=== PATIENT | male | born 1950 | race Caucasian/White ===

== ENCOUNTER 2016-08-31 13:47 | Inpatient (IN) | payer MEDICARE, OTHER ==
[~2016-08-31] VITALS: Ht 182.9 cm; Wt 67.5 kg
[2016-08-31] VITALS (7 sets, daily range): BP systolic 91–115; BP diastolic 55–71; PULSE 76–145; RESP 15–20; TEMP 98–98.6; O2SAT 92–95
[~2016-08-31 13:47] MED LIST: ALTA2.5C4 PO; CARV6.25 PO; CHLO.12%30 SSP; FURO20 PO; IBUP800T23 PO; KCL20; LANO0.2510 PO; PENI500T PO
[2016-08-31] MEDS ORDERED: SODIUM CHLORIDE 0.9% FLUSH 5 ML FLUSH IVF PRN ×2 (14:45)
[2016-08-31] MEDS ORDERED: DILTIAZEM INJ 125 MG in SODIUM CHLORIDE 0.9% INJ 100 ML IV SCH (14:45)
[2016-08-31] MEDS ORDERED: DILTIAZEM HCL 25 MG/5 ML VIAL IV ONE ×2 (14:45→16:15)
--- NOTE | 2016-08-31 15:21 | RADRPT ---
EXAM DATE/TIME: 08/31/2016 15:05 [facility] COMPARISON: CHEST SINGLE AP, June 25, 2012, 13:21. INDICATIONS : Short of Breath, Dizzy, Weakness. MEDICAL HISTORY : None. SURGICAL HISTORY : Defibrilator. ENCOUNTER: Initial ACUITY: 1 week PAIN SCORE: 0/10 LOCATION: Bilateral chest FINDINGS: Pacemaker device is noted with control pack over the left chest. Minimal parenchymal opacity at the l eft lung base may be scarring or atelectasis. There is mild perihilar interstitial prominence, right worse than left. Heart size mediastinal contours are grossly satisfactory.. CONCLUSION: Mild left base and perihilar parenchymal opacities Albino Vann MD on August 31, 2016 at 15:17 Board Certified Radiologist. This report was verified electronically.
[2016-08-31 15:22] LABS: AUTOMATED NEUTROPHIL # 11.3 TH/MM3 (1.8-7.7); BASOPHIL % 0.3 % (0.0-2.0); HEMATOCRIT 41.4 % (39.0-51.0); HEMO FLAGS DIFF FINAL; LYMPH % 11.4 % (9.0-44.0); LYMPHOCYTE # 1.6 TH/MM3 (1.0-4.8); MEAN CELL VOLUME 88.9 FL (80.0-100.0); MEAN CORPUSCULAR HEMOGLOBIN 29.8 PG (27.0-34.0); MEAN CORPUSCULAR HGB CONC 33.6 % (32.0-36.0); NEUT % 82.3 % (16.0-70.0); PLATELET COUNT 173 TH/MM3 (150-450); RED BLOOD COUNT 4.66 MIL/MM3 (4.50-5.90); RED CELL DISTRIBUTION WIDTH 13.9 % (11.6-17.2); WHITE BLOOD COUNT 13.7 TH/MM3 (4.0-11.0)
[2016-08-31 15:24] LABS: APTT (PATIENT) 30.1 SEC (24.3-30.1); PROTHROMBIN TIME - PATIENT 11.6 SEC (9.8-11.6)
[2016-08-31 15:35] LABS: ALT (GPT) 16 U/L (12-78); ANION GAP 7 MEQ/L (5-15); AST (GOT) 13 U/L (15-37); BICARBONATE 26.1 MEQ/L (21.0-32.0); BLOOD UREA NITROGEN 14 MG/DL (7-18); CHLORIDE 105 MEQ/L (98-107); GLOMERULAR FILTRATION RATE 61 ML/MIN (>89); POTASSIUM 3.8 MEQ/L (3.5-5.1); SODIUM (NA) 138 MEQ/L (136-145)
[2016-08-31 15:38] LABS: ALKALINE PHOSPHATASE 100 U/L (45-117); TOTAL BILIRUBIN ADULT 1.4 MG/DL (0.2-1.0)
--- NOTE | 2016-08-31 16:17 | PD ---
HPI Chief Complaint: General Weakness Time Seen by Provider: 14:43 Travel History International Travel<30 days: No Contact w/Intl Traveler<30days: No History of Present Illness HPI This is a 66-year-old male who has a history of congestive heart failure with an ejection fraction of 20-25% who presents to the emergency department with shortness of breath has been worsening over the past week, constant, worse with exertion, described as difficulty catching his breath associated with palpitations. He denies any chest pain. This is happened to him in the past. 3 years ago he was admitted to the hospital and had an AICD placed under similar circumstances. He says he follows with Dr. Turcios. [facility] Past Medical History Atrial Fibrillation: Yes Cardiovascular Problems: Yes (PACER/DEFIB) Congestive Heart Failure: Yes Social History Alcohol Use: No Tobacco Use: No Substance Use: No Allergies-Medications (Allergen,Severity, Reaction): Coded Allergies: No Known Allergies (Verified , 08/31/16) Reported Meds & Prescriptions Reported Meds & Active Scripts Active Ibuprofen 800 Mg Tab 800 Mg PO Q6 Pen Vk (Penicillin V Potassium) 500 Mg Tab 500 Mg PO TID Peridex Oral Rinse (Chlorhexidine Gluconate) 0.12 % Zena 15 Ml SSP BID 14 Days Reported Lasix 20 Mg Tab (Furosemide) 20 Mg Tab 20 Mg PO DAILY Coreg (Carvedilol) 6.25 Mg Tab 6.25 Mg PO BID Altace (Ramipril) 2.5 Mg Cap 2.5 Mg PO DAILY Lanoxin (Digoxin) 0.25 Mg Tab 0.25 Mg PO DAILY Kcl 20 Meq Tab (Potassium Chloride) 20 Meq Tabcr 20 Meq .XX Review of Systems Except as stated in HPI: all other systems reviewed are Neg Physical Exam Narrative GENERAL:Well appearing, no acute distress SKIN: Warm and dry. HEAD: Atraumatic. Normocephalic. EYES: Pupils equal and round. No injection or drainage. ENT: Moist mucous membranes NECK: Trachea midline. CARDIOVASCULAR: Tachycardic. Irregularly irregular. No murmur appreciated. RESPIRATORY: Clear to auscultation. Breath sounds equal bilaterally. GASTROINTESTINAL: Abdomen soft, non-tender, nondistended. MUSCULOSKELETAL: No obvious deformities. NEUROLOGICAL: Awake and alert. No obvious cranial nerve deficits. Moving all extremities. PSYCHIATRIC: Appropriate mood and affect; insight and judgment normal. Data Data Last Documented VS Vital Signs Date Time Temp Pulse Resp B/P Pulse Ox O2 Delivery O2 Flow Rate FiO2 08/31/16 17:00 115 18 115/71 95 08/31/16 14:53 Room Air 08/31/16 14:53 98.2 Orders Electrocardiogram (08/31/16 14:01) B-Type Natriuretic Peptide (08/31/16 14:43) Complete Blood Count With Diff (08/31/16 14:43) Comprehensive Metabolic Panel (08/31/16 14:43) Magnesium (Mg) (08/31/16 14:43) Prothrombin Time / Inr (Pt) (08/31/16 14:43) Act Partial Throm Time (Ptt) (08/31/16 14:43) Troponin I (08/31/16 14:43) Chest, Single Ap (08/31/16 14:43) Ecg Monitoring (08/31/16 14:43) Bilateral Bp Monitoring (08/31/16 14:43) Iv Access Insert/Monitor (08/31/16 14:43) Oximetry (08/31/16 14:43) Oxygen Administration (08/31/16 14:43) Sodium Chloride 0.9% Flush (Ns Flush) (08/31/16 14:45) Blood Pressure (08/31/16 14:43) Vital Signs (08/31/16 14:43) Diltiazem Inj (Cardizem Inj) (08/31/16 14:45) Sodium Chloride 0.9% Flush (Ns Flush) (08/31/16 14:45) Diltiazem Inj (Cardizem Inj) (08/31/16 14:45) Diltiazem Inj (Cardizem Inj) (08/31/16 16:15) Admit Order (Ed Use Only) (08/31/16 17:34) Labs Laboratory Tests Test 08/31/16 15:00 White Blood Count 13.7 TH/MM3 Red Blood Count 4.66 MIL/MM3 Hemoglobin 13.9 GM/DL Hematocrit 41.4 % Mean Corpuscular Volume 88.9 FL Mean Corpuscular Hemoglobin 29.8 PG Mean Corpuscular Hemoglobin 33.6 % Concent Red Cell Distribution Width 13.9 % Platelet Count 173 TH/MM3 Mean Platelet Volume 8.6 FL Neutrophils (%) (Auto) 82.3 % Lymphocytes (%) (Auto) 11.4 % Monocytes (%) (Auto) 6.0 % Eosinophils (%) (Auto) 0.0 % Basophils (%) (Auto) 0.3 % Neutrophils # (Auto) 11.3 TH/MM3 Lymphocytes # (Auto) 1.6 TH/MM3 Monocytes # (Auto) 0.8 TH/MM3 Eosinophils # (Auto) 0.0 TH/MM3 Basophils # (Auto) 0.0 TH/MM3 CBC Comment DIFF FINAL Differential Comment Prothrombin Time 11.6 SEC Prothromb Time International 1.0 RATIO Ratio Activated Partial 30.1 SEC Thromboplast Time Sodium Level 138 MEQ/L Potassium Level 3.8 MEQ/L Chloride Level 105 MEQ/L Carbon Dioxide Level 26.1 MEQ/L Anion Gap 7 MEQ/L Blood Urea Nitrogen 14 MG/DL Creatinine 1.19 MG/DL Estimat Glomerular Filtration 61 ML/MIN Rate Random Glucose 106 MG/DL Calcium Level 9.2 MG/DL Magnesium Level 2.0 MG/DL Total Bilirubin 1.4 MG/DL Aspartate Amino Transf 13 U/L (AST/SGOT) Alanine Aminotransferase 16 U/L (ALT/SGPT) Alkaline Phosphatase 100 U/L Troponin I LESS THAN 0.02 NG/ML B-Type Natriuretic Peptide 316 PG/ML Total Protein 7.8 GM/DL Albumin 3.6 GM/DL [facility] Medical Decision Making Medical Screen Exam Complete: Yes Emergency Medical Condition: Yes Medical Record Reviewed: Yes (patient was admitted in 2011 and diagnosed with congestive heart failure and an AICD was placed.) Interpretation(s) Mild leukocytosis Left shift Electrolytes within normal limits BNP is 316 Troponin is normal Chest x-ray: Left base perihilar and parenchymal opacities Differential Diagnosis Atrial flutter, atrial fibrillation, congestive heart failure, myocardial infarction, pneumonia Narrative Course This is a 66-year-old male who presents to the emergency department with atrial flutter with rapid ventricular response. He has a history congestive heart failure. He is placed on a monitor and an IV was established. He was given 2 boluses of diltiazem and started on a diltiazem infusion. His blood pressure remained stable. He does have evidence of a possible pneumonia on chest x-ray. He was given a dose of ceftriaxone and azithromycin was admitted to the hospital for further management. Critical Care Narrative Aggregate critical care time was 35 minutes. Time to perform other separately billable procedures was not included in the critical care time. My time did not include minutes spent treating any other patients simultaneously or on activities that did not directly contribute to the patient's treatment. The services I provided to this patient were to treat and/or prevent clinically significant deterioration that could result in: Disability, I provided critical care services requiring my management, as noted below: Chart data review, documentation time, medication orders and management, vital sign assessments/reviewing monitor data, ordering and reviewing lab tests, ordering and interpreting/reviewing x-rays and diagnostic studies, care of the patient and discussion of the patient with the admitting physicians. Physician Communication Physician Communication Discussed with Dr. Haile Diagnosis Primary Impression: Atrial flutter with rapid ventricular response Additional Impression: Pneumonia Qualified Code: J18.9 - Pneumonia of left lung due to infectious organism, unspecified part of lung Admitting Information Admitting Physician Requests: Admit Montserrat Sparks MD Aug 31, 2016 16:17
[2016-08-31] MEDS ORDERED: AZITHROMYCIN INJ 500 MG in SODIUM CHLOR 0.9% 250 ML INJ 250 ML IV ONE (17:45)
[2016-08-31] MEDS ORDERED: cefTRIAXone INJ 1,000 MG in SODIUM CHLORIDE 0.9% INJ 100 ML IV ONE (17:45)
[2016-08-31] MEDS ORDERED: SENNOSIDES 8.6 MG TAB PO PRN (18:15)
[2016-08-31] MEDS ORDERED: ONDANSETRON HCL 4 MG/2 ML VIAL IVP PRN (18:15)
[2016-08-31] MEDS ORDERED: SODIUM CHLORIDE 0.9% FLUSH 5 ML FLUSH FLUSH PRN (18:15)
[2016-08-31] MEDS ORDERED: NALOXONE HCL 0.4 MG/ML AMP IV PRN (18:15)
[2016-08-31] MEDS ORDERED: ACETAMINOPHEN 325 MG TAB PO PRN ×2 (18:15)
--- NOTE | 2016-08-31 18:21 | HHI.HP ---
[facility] Service [facility] Primary Care Physician No Primary Care Physician Admission Diagnosis atrial flutter with rvr Diagnoses: Chief Complaint: Weakness, fatigue, shortness of breath Travel History International Travel<30 Days: No Contact w/Intl Traveler <30 Da: No History of Present Illness The patient is a 66-year-old male with a past medical history of CHF and atrial fibrillation who is presenting to the hospital with fatigue, lightheadedness and shortness of breath. The patient says that ever since he had AICD placed in 2011 he has chronically had fatigue and lightheadedness from time to time. He also notes shortness of breath from time to time. Over the past week he has noticed his symptoms have been progressing. He is short of breath randomly, not just with exertion. He says when he starts taking deep breaths slowly he starts to feel a little bit better. He has denied any chest pain or palpitations. He says this morning his gearcase assembler stopped by the house and thought he looked badly so she took him to the hospital for further evaluation. The patient does feel weak in general but he does ambulate without a cane or walker. He is able to go up and down stairs but it is a challenge for him. He denies any lower extremity edema. He has not noticed any weight gain. He does not wake up in the middle of the night short of breath. He is able to lay flat on his back without feeling short of breath. He does endorse a poor memory. He says he has been following up with cardiology. Review of Systems Constitutional: COMPLAINS OF: Fatigue, Dizziness, DENIES: Weight gain Respiratory: COMPLAINS OF: Shortness of breath Cardiovascular: COMPLAINS OF: Dyspnea on Exertion, DENIES: Chest pain, Palpitations, PND, Lower Extremity Edema, Orthopnea Gastrointestinal: DENIES: Constipation Neurologic: COMPLAINS OF: Abnormal gait Past Family Social History Past Medical History Systolic CHF Atrial fibrillation Past Surgical History Status post AICD placement Allergies: Coded Allergies: No Known Allergies (Verified , 08/31/16) Active Ordered Medications Current Medications Medications (Trade) Dose Ordered Sig/Jojo Route Start Time Stop Time Status Last Admin IV Flush 2 ml 2 ml UNSCH PRN IVF 08/31/16 14:45 (Cardizem Inj/NS Inj) 125 ml @ 0 mls/hr TITRATE IV 08/31/16 14:45 08/31/16 15:26 IV Flush 2 ml 2 ml UNSCH PRN IVF 08/31/16 14:45 Ceftriaxone Sodium 1000 mg/ Sodium Chloride 100 ml @ 200 mls/hr ONCE ONCE IV 08/31/16 17:45 08/31/16 18:14 (Zithromax Inj/ NS 250 ml Inj) 250 ml @ 250 mls/hr ONCE ONCE IV 08/31/16 17:45 08/31/16 18:44 (Lanoxin) 0.25 mg DAILY PO 09/01/16 09:00 UNV (Lasix) 20 mg DAILY PO 09/01/16 09:00 UNV Non-Formulary Medication 2.5 mg DAILY PO 09/01/16 09:00 UNV (Coreg) 12.5 mg Q12HR PO 08/31/16 21:00 UNV Family History The patient does not know any significant family history. Social History The patient quit smoking in 2014. He quit drinking 2 years ago. He does not use illicit drugs. Physical Exam Vital Signs Vital Signs Date Time Temp Pulse Resp B/P Pulse Ox O2 Delivery O2 Flow Rate FiO2 08/31/16 17:00 115 18 115/71 95 08/31/16 15:20 95 08/31/16 14:53 94 Room Air 08/31/16 14:53 98.2 142 18 106/70 95 Room Air 08/31/16 14:53 143 106/70 08/31/16 14:53 95 Room Air 08/31/16 13:52 96/64 08/31/16 13:49 98.0 145 15 94/59 92 Physical Exam GENERAL: This is a well-nourished, well-developed patient, in no apparent distress. SKIN: No rashes, ecchymoses or lesions. Cool and dry. HEAD: Atraumatic. Normocephalic. No temporal or scalp tenderness. EYES: Pupils equal round and reactive. Extraocular motions intact. No scleral icterus. No injection or drainage. ENT: Nose without bleeding, purulent drainage or septal hematoma. Throat without erythema, tonsillar hypertrophy or exudate. Uvula midline. Airway patent. NECK: Trachea midline. No JVD or lymphadenopathy. Supple, nontender, no meningeal signs. CARDIOVASCULAR: Irregularly irregular rhythm. RESPIRATORY: Clear to auscultation. Breath sounds equal bilaterally. No wheezes , rales, or rhonchi. GASTROINTESTINAL: Abdomen soft, non-tender, nondistended. No hepato-splenomegaly , or palpable masses. No guarding. MUSCULOSKELETAL: Extremities without clubbing, cyanosis, or edema. No joint tenderness, effusion, or edema noted. NEUROLOGICAL: Awake and alert. Cranial nerves II through XII intact. Motor and sensory grossly within normal limits. Five out of 5 muscle strength in all muscle groups. Normal speech. PSYCH: Slightly flattened affect. Laboratory Laboratory Tests Test 08/31/16 15:00 White Blood Count 13.7 Red Blood Count 4.66 Hemoglobin 13.9 Hematocrit 41.4 Mean Corpuscular Volume 88.9 Mean Corpuscular Hemoglobin 29.8 Mean Corpuscular Hemoglobin 33.6 Concent Red Cell Distribution Width 13.9 Platelet Count 173 Mean Platelet Volume 8.6 Neutrophils (%) (Auto) 82.3 Lymphocytes (%) (Auto) 11.4 Monocytes (%) (Auto) 6.0 Eosinophils (%) (Auto) 0.0 Basophils (%) (Auto) 0.3 Neutrophils # (Auto) 11.3 Lymphocytes # (Auto) 1.6 Monocytes # (Auto) 0.8 Eosinophils # (Auto) 0.0 Basophils # (Auto) 0.0 CBC Comment DIFF FINAL Differential Comment Prothrombin Time 11.6 Prothromb Time International 1.0 Ratio Activated Partial 30.1 Thromboplast Time Sodium Level 138 Potassium Level 3.8 Chloride Level 105 Carbon Dioxide Level 26.1 Anion Gap 7 Blood Urea Nitrogen 14 Creatinine 1.19 Estimat Glomerular Filtration 61 Rate Random Glucose 106 Calcium Level 9.2 Magnesium Level 2.0 Total Bilirubin 1.4 Aspartate Amino Transf 13 (AST/SGOT) Alanine Aminotransferase 16 (ALT/SGPT) Alkaline Phosphatase 100 Troponin I LESS THAN 0.02 B-Type Natriuretic Peptide 316 Total Protein 7.8 Albumin 3.6 Result Diagram: 08/31/16 1500 08/31/16 1500 Imaging Last Impressions Chest X-Ray 08/31/16 1443 Signed Impressions: Service Date/Time: Wednesday, August 31, 2016 15:05 - CONCLUSION: Mild left base and perihilar parenchymal opacities Albino Vann MD Assessment and Plan Assessment and Plan Atrial flutter with RVR The patient has a history of atrial fibrillation and is on aspirin, digoxin and Coreg. The patient has been feeling short of breath, lethargic and dizzy for the past week. He received IV diltiazem and his rate has been controlled in the emergency department. - Increase Coreg. - Continue digoxin. - Monitor on telemetry. - Consult cardiology. - Check a TSH. Chronic systolic CHF The patient is status post AICD. He presents with dyspnea and lethargy. - Continue cardiac regimen. - Cardiology consult pending. - Consider pacemaker interrogation. CAP CXR with questionable infiltrate. He also has leukocytosis. Afebrile. Pt has dyspnea and lethargy. - start doxycycline. - check CXR PA/lateral in AM. - Urinary Legionella and strep topical antigens pending. - Sputum culture and Gram stain. - Oxygen and nebs as needed. Weakness The patient endorses weakness and lightheadedness since his AICD was placed in 2011. - Physical therapy. - Treatment as above. PPx: Lovenox. Code Status Full. Discussed Condition With Pt, Dr. Sparks. Physician Certification 2 Midnight Certification Type: Admission for Inpatient Services Order for Inpatient Services The services are ordered in accordance with Medicare regulations or non- Medicare payer requirements, as applicable. In the case of services not specified as inpatient-only, they are appropriately provided as inpatient services in accordance with the 2-midnight benchmark. Estimated LOS (days): 2 days is the estimated time the patient will need to remain in the hospital, assuming treatment plan goals are met and no additional complications. Post-Hospital Plan: Home Gato Haile DO Aug 31, 2016 18:21
[2016-08-31] MEDS ORDERED: ENOXAPARIN SODIUM 40 MG/0.4 ML SYRINGE SQ SCH (20:00)
[2016-08-31] MEDS ORDERED: DOXYCYCLINE INJ 100 MG in SODIUM CHLORIDE 0.9% INJ 100 ML IV SCH (20:00)
[2016-08-31] MEDS ORDERED: CARVEDILOL 12.5 MG TAB PO SCH (21:00)
--- NOTE | 2016-08-31 22:06 | EKG ---
Date Performed: 08/31/2016 Time Performed: 14:13:44 PTAGE: 66 years EKG: ATRIAL FLUTTER/TACHYCARDIA WITH RAPID VENTRICULAR RESPONSE NONSPECIFIC ST & T-WAVE ABNORMAL ITY ABNORMAL RHYTHM ECG PREVIOUS TRACING : 06/25/2012 04.27 Compared to the previous tracing, now in atrial flutter wit h rvr DOCTOR: Carlos A Jara Interpretating Date/Time 08/31/2016 22:04:36
[2016-08-31] MEDS: DOCUSATE SODIUM 100 MG CAP PO SCH (23:30)
[2016-08-31] MEDS: SODIUM CHLORIDE 0.9% FLUSH 5 ML FLUSH FLUSH SCH (23:30)
[2016-09-01] VITALS (24 sets, daily range): BP systolic 79–130; BP diastolic 63–84; PULSE 76–137; RESP 16–20; TEMP 97.4–98.7; O2SAT 90–95
[2016-09-01 03:31] LABS: AUTOMATED NEUTROPHIL # 9.4 TH/MM3 (1.8-7.7); BASOPHIL % 0.1 % (0.0-2.0); EOSINOPHIL % 0.2 % (0.0-4.0); HEMATOCRIT 35.9 % (39.0-51.0); HEMO FLAGS DIFF FINAL; LYMPH % 9.8 % (9.0-44.0); LYMPHOCYTE # 1.1 TH/MM3 (1.0-4.8); MEAN CELL VOLUME 88.2 FL (80.0-100.0); MEAN CORPUSCULAR HEMOGLOBIN 29.8 PG (27.0-34.0); MEAN CORPUSCULAR HGB CONC 33.8 % (32.0-36.0); MONO % 4.7 % (0.0-8.0); NEUT % 85.2 % (16.0-70.0); PLATELET COUNT 148 TH/MM3 (150-450); RED BLOOD COUNT 4.06 MIL/MM3 (4.50-5.90); RED CELL DISTRIBUTION WIDTH 13.7 % (11.6-17.2); WHITE BLOOD COUNT 11.1 TH/MM3 (4.0-11.0)
[2016-09-01 03:50] LABS: BICARBONATE 24.4 MEQ/L (21.0-32.0); POTASSIUM 3.7 MEQ/L (3.5-5.1)
[2016-09-01] MEDS ORDERED: METOPROLOL TARTRATE 5 MG/5 ML VIAL IV PUSH ONE (04:30)
[2016-09-01] MEDS ORDERED: SODIUM CHLORID 0.9% 500 ML INJ 500 ML IV ONE (05:45)
[2016-09-01] MEDS ORDERED: DIGOXIN 0.5 MG/2 ML VIAL IV PUSH ONE (08:30)
[2016-09-01] MEDS ORDERED: FUROSEMIDE 20 MG TAB PO SCH (09:00)
[2016-09-01] MEDS ORDERED: RAMIPRIL PO SCH (09:00)
[2016-09-01] MEDS ORDERED: RAMIPRIL 2.5 MG CAP PO SCH (09:00)
[2016-09-01] MEDS: SODIUM CHLORIDE 0.9% FLUSH 5 ML FLUSH FLUSH SCH ×2 (09:04→22:02)
[2016-09-01] MEDS: DOCUSATE SODIUM 100 MG CAP PO SCH ×2 (09:04→22:02)
[2016-09-01] MEDS: ENOXAPARIN SODIUM 60 MG/0.6 ML SYRINGE SQ SCH ×2 (09:09→22:03)
[2016-09-01] MEDS: DIGOXIN 0.25 MG TAB PO SCH (09:10)
--- NOTE | 2016-09-01 09:36 | MB ---
cc: EDILBERTO BETANCUR M.D., LISA, M.D. GOLDSMITH, ALAN S. M.D. DATE OF CONSULTATION: 09/01/2016 HISTORY OF PRESENT ILLNESS The patient is a 66-year-old white gentleman who I am seeing for atrial flutter. The patient's outside records and hospital records were reviewed. 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 He had an ejection fraction of 10-20% at that time. Last echocardiogram done 03/10 showed normal LV function with mild to moderate aortic, mitral and tricuspid regurgitation. SPECT nuclear in 2011 showed no ischemia. The patient does have chronic fatigue. He does note starting 5-6 days ago that things had changed where he was getting intermittently lightheaded, had mild increase in dyspnea on exertion and just did not feel well. There were no other cardiac symptomatology noted. He had no fevers, chills or stroke symptoms. PAST MEDICAL HISTORY 1. Cardiac as above. 2. Hernia repair. ALLERGIES NONE. FAMILY HISTORY Remarkable for father with an AK. SOCIAL HISTORY He is single and quit smoking in 2014 and does not drink. REVIEW OF SYSTEMS Only remarkable for his fatigue and just generalized body achiness. PHYSICAL EXAMINATION EKG on admission showed atrial flutter with a rapid response. It was somewhat slowed but they have cut back the Cardizem and he is in a response of 120-130 now. He is afebrile and vital signs stable otherwise. HEENT: There are no xanthelasma and oral pharyngeal mucosa normal. GENERAL: He is alert and oriented x3. CHEST: Chest clear without deformities. JVD normal. CARDIOVASCULAR: S1, S2. No murmurs or gallops. ABDOMEN: Benign. EXTREMITIES: Extremities show no cyanosis, clubbing or edema. Pulses 1 to 2+ throughout without bruits. IMAGING Chest x-ray reveals mild left base and perihilar opacities. LABORATORY DATA CBC remarkable for minimal anemia and a mildly elevated white count. Potassium 3.7, magnesium normal, creatinine 0.85, troponins negative. BNP minimally elevated at 316. TSH level normal. PT/PTT normal. PROBLEMS 1. Atrial flutter with rapid response. 2. Prior cardiomyopathy. 3. Possible pulmonary infiltrate. RECOMMENDATIONS 1. The patient may have been in his atrial flutter with rapid response for close to a week. We will need to concentrate on rate control and anticoagulation. He was not on digoxin at home so I will continue the oral dose started and give him a bolus of 0.5 mg IV. 2. Low-dose beta blockers and intravenous Cardizem for rate control. 3. Full dose Lovenox. 4. Echocardiogram. 5. Dr. Betancur will return on Saturday and provide further definitive evaluation and treatment. All questions were answered. I would hold his diuresis at this point in time and his VASYL inhibitors given his borderline blood pressure. Medications prior to admission are erroneous in the history and physical. He was on carvedilol 12.5 mg b.i.d., Baby aspirin per day and Lisinopril 5 mg daily only. MD EDISON Perales/SHEFALI /8:26 AM /9:10 AM
[2016-09-01] MEDS: CARVEDILOL 6.25 MG TAB PO SCH ×2 (10:24→22:02)
--- NOTE | 2016-09-01 12:23 | RADRPT ---
EXAM DATE/TIME: 09/01/2016 11:57 [facility] COMPARISON: CHEST SINGLE AP, August 31, 2016, 15:05. INDICATIONS : Shortness of breath. Pneumonia. MEDICAL HISTORY : None. SURGICAL HISTORY : Defibrillator. ENCOUNTER: Subsequent ACUITY: 1 week PAIN SCORE: 0/10 LOCATION: Bilateral chest FINDINGS: Right lung is clear. Very minimal parenchymal changes are present in the left. Pacer is implanted o n the left. Heart and pulmonary vascularity are normal. Portion of bony skeleton visualized is unre markable. CONCLUSION: Very minimal parenchymal changes on the left, new from the comparison study. This is nonspecific. C onsiderations would include both an inflammatory process as well as atelectasis. Dane Flores MD FACR on September 01, 2016 at 12:13 Board Certified Radiologist. This report was verified electronically.
--- NOTE | 2016-09-01 13:12 | HHI.PR ---
Subjective Remarks The patient was resting comfortably in bed. He said that he felt better. He was looking forward to going home soon. He said he had a watery bowel movement earlier this morning. He said he worked with physical therapy. He had no acute complaints. Discussed with nursing. Objective Vitals Vital Signs Date Time Temp Pulse Resp B/P Pulse Ox O2 Delivery O2 Flow Rate FiO2 09/01/16 13:00 98 09/01/16 12:00 97.5 93 19 97/63 95 09/01/16 12:00 100 09/01/16 11:00 100 09/01/16 10:00 132 09/01/16 09:00 133 09/01/16 08:00 129 09/01/16 08:00 98.5 130 19 105/74 95 09/01/16 07:00 130 09/01/16 06:07 98.6 130 20 107/78 95 09/01/16 06:00 129 09/01/16 01:35 98.7 108 20 101/66 94 09/01/16 01:32 98.6 76 20 79/63 93 09/01/16 01:00 87 09/01/16 00:00 78 08/31/16 23:34 89 08/31/16 23:33 98.6 76 20 91/67 93 08/31/16 23:00 100 18 105/55 94 08/31/16 17:00 115 18 115/71 95 08/31/16 15:20 95 08/31/16 14:53 94 Room Air 08/31/16 14:53 98.2 142 18 106/70 95 Room Air 08/31/16 14:53 143 106/70 08/31/16 14:53 95 Room Air 08/31/16 13:52 96/64 08/31/16 13:49 98.0 145 15 94/59 92 I/O 08/31/16 08/31/16 08/31/16 09/01/16 09/01/16 09/01/16 07:00 15:00 23:00 07:00 15:00 23:00 Intake Total 540 ml Output Total 100 ml Balance 440 ml Intake Oral 240 ml IV Total 300 ml Output Urine Total 100 ml Result Diagram: 09/01/1631609/01/16316 Imaging Last Impressions Chest X-Ray 08/31/16 1443 Signed Impressions: Service Date/Time: Wednesday, August 31, 2016 15:05 - CONCLUSION: Mild left base and perihilar parenchymal opacities Albino Vann MD Objective Remarks GENERAL: This is a well-nourished, well-developed patient, in no apparent distress. SKIN: No rashes, ecchymoses or lesions. Cool and dry. HEAD: Atraumatic. Normocephalic. No temporal or scalp tenderness. EYES: Pupils equal round and reactive. Extraocular motions intact. No scleral icterus. No injection or drainage. ENT: Nose without bleeding, purulent drainage or septal hematoma. Throat without erythema, tonsillar hypertrophy or exudate. Uvula midline. Airway patent. NECK: Trachea midline. No JVD or lymphadenopathy. Supple, nontender, no meningeal signs. CARDIOVASCULAR: Tachycardic, irregularly irregular rhythm. RESPIRATORY: Clear to auscultation. Breath sounds equal bilaterally. No wheezes , rales, or rhonchi. GASTROINTESTINAL: Abdomen soft, non-tender, nondistended. No hepato-splenomegaly , or palpable masses. No guarding. MUSCULOSKELETAL: Extremities without clubbing, cyanosis, or edema. No joint tenderness, effusion, or edema noted. NEUROLOGICAL: Awake and alert. Cranial nerves II through XII intact. Motor and sensory grossly within normal limits. Five out of 5 muscle strength in all muscle groups. Normal speech. PSYCH: Mood and affect appropriate. Medications and IVs Current Medications Medications (Trade) Dose Ordered Sig/Jojo Route Start Time Stop Time Status Last Admin (Cardizem Inj/NS Inj) 125 ml @ 0 mls/hr TITRATE IV 08/31/16 14:45 08/31/16 15:26 (Lanoxin) 0.25 mg DAILY PO 09/01/16 09:00 09/01/16 09:10 (NS Flush) 2 ml UNSCH PRN FLUSH 08/31/16 18:15 (NS Flush) 2 ml BID FLUSH 08/31/16 21:00 09/01/16 09:04 (Tylenol) 650 mg Q4H PRN PO 08/31/16 18:15 (Zofran Inj) 4 mg Q6H PRN IVP 08/31/16 18:15 (Colace) 100 mg Q12H PO 08/31/16 20:00 09/01/16 09:04 (Senokot) 17.2 mg Q12H PRN PO 08/31/16 18:15 (Tylenol) 650 mg Q6H PRN PO 08/31/16 18:15 (Roxicodone) 10 mg Q4H PRN PO 08/31/16 18:15 (Roxicodone) 5 mg Q4H PRN PO 08/31/16 18:15 Naloxone HCl 0.4 mg 0.4 mg UNSCH PRN IV 08/31/16 18:15 (Vibramycin Inj/ NS Inj) 100 ml @ 100 mls/hr Q12H IV 08/31/16 20:00 09/01/16 09:03 (Coreg) 6.25 mg Q12HR PO 09/01/16 09:00 09/01/16 10:24 (Lovenox Inj) 60 mg Q12H SQ 09/01/16 09:00 09/01/16 09:09 (K-Lyte Cl Eff) 25 meq ONCE ONCE PO 09/01/16 13:00 09/01/16 13:01 UNV A/P Assessment and Plan Atrial flutter with RVR The patient has a history of atrial fibrillation and is on aspirin, digoxin and Coreg. The patient has been feeling short of breath, lethargic and dizzy for the past week. He received IV diltiazem and his rate has been controlled in the emergency department. Cardiology consultation appreciated. - Continue Coreg. - Continue digoxin. He received a dose of IV digoxin per cardiology. - Monitor on telemetry. - Check an echocardiogram. - Wean off Cardizem drip. - therapeutic Lovenox per cardiology. Will likely transition to Coumadin if no ablation planned. Chronic systolic CHF The patient is status post AICD. He presents with dyspnea and lethargy. - Continue cardiac regimen. Holding Lasix and lisinopril in the setting of relative hypotension. - Follow up with cardiology. - Consider pacemaker interrogation. CAP CXR with questionable infiltrate. He also has leukocytosis. Afebrile. Pt has dyspnea and lethargy. No cough or sputum production. - d/c doxycycline and monitor. - Urinary Legionella and streptococcal antigens pending. - Sputum culture and Gram stain. - Oxygen and nebs as needed. Weakness The patient endorses weakness and lightheadedness since his AICD was placed in 2011. - Physical therapy. - Treatment as above. PPx: Lovenox. Discharge Planning Awaiting clinical improvement. Gato Haile DO Sep 01, 2016 13:12
[2016-09-01] MEDS ORDERED: POTASSIUM CHLORIDE 25 MEQ EFFERVESCENT TAB PO ONE (14:00)
--- NOTE | 2016-09-01 14:46 | EKG ---
Date Performed: 08/31/2016 Time Performed: 22:45:41 PTAGE: 66 years EKG: ATRIAL FIBRILLATION WITH Controlled Ventricular Response NONSPECIFIC T-WAVE ABNORMALITY ABN ORMAL RHYTHM ECG PREVIOUS TRACING : 08/31/2016 14.13 Compared to the previous tracing, rate has decreased DOCTOR: Carlos A Jara Interpretating Date/Time 09/01/2016 14:44:21
[2016-09-01] MEDS ORDERED: DILTIAZEM HCL 25 MG/5 ML VIAL IV ONE (18:45)
[2016-09-01] MEDS ORDERED: DILTIAZEM IV ONE (19:00)
[2016-09-01] MEDS ORDERED: SODIUM CHLORIDE 0.9% IV ONE (19:00)
[2016-09-02] VITALS (30 sets, daily range): BP systolic 90–143; BP diastolic 64–85; PULSE 77–141; RESP 16; TEMP 97.6–98.7; O2SAT 91–95
[2016-09-02] MEDS ORDERED: DILTIAZEM HCL 25 MG/5 ML VIAL IV SCH (02:45)
[2016-09-02 05:31] LABS: HEMATOCRIT 37.2 % (39.0-51.0); MEAN CORPUSCULAR HEMOGLOBIN 30.1 PG (27.0-34.0); MEAN CORPUSCULAR HGB CONC 33.8 % (32.0-36.0); PLATELET COUNT 184 TH/MM3 (150-450); RED BLOOD COUNT 4.18 MIL/MM3 (4.50-5.90); RED CELL DISTRIBUTION WIDTH 14.1 % (11.6-17.2); REVIEW FLAG FINAL; WHITE BLOOD COUNT 8.5 TH/MM3 (4.0-11.0)
[2016-09-02 05:51] LABS: BICARBONATE 22.2 MEQ/L (21.0-32.0); MAGNESIUM 1.9 MG/DL (1.5-2.5); POTASSIUM 3.7 MEQ/L (3.5-5.1)
[2016-09-02] MEDS ORDERED: DILTIAZEM HCL 30 MG TAB PO SCH (09:00)
--- NOTE | 2016-09-02 09:19 | PD.CARD.PN ---
Subjective Subjective Remarks The patient is off of intravenous diltiazem and on oral medication. Telemetry shows controlled atrial flutter with occasional ventricular demand pacemaker. He denies chest pain, shortness of breath, palpitations, GI symptoms or bleeding. Objective Medications Reviewed Vital Signs / I&O Vital Signs Date Time Temp Pulse Resp B/P Pulse Ox O2 Delivery O2 Flow Rate FiO2 09/02/16 08:00 77 09/02/16 07:00 120 09/02/16 05:01 98.1 103 16 90/64 91 09/02/16 05:00 106 09/02/16 04:00 119 09/02/16 03:00 111 09/02/16 02:00 117 09/02/16 01:00 141 09/02/16 00:05 98.1 112 16 109/77 91 09/02/16 00:00 107 09/01/16 23:00 111 09/01/16 22:00 97.4 117 16 130/84 90 09/01/16 22:00 119 09/01/16 21:00 111 09/01/16 20:00 137 09/01/16 19:00 103 09/01/16 18:00 117 09/01/16 17:00 111 09/01/16 16:00 97.7 104 17 101/70 94 09/01/16 16:00 102 09/01/16 15:00 100 09/01/16 14:00 100 09/01/16 13:00 98 09/01/16 12:00 97.5 93 19 97/63 95 09/01/16 12:00 100 09/01/16 11:00 100 09/01/16 10:00 132 I/O 09/01/16 09/01/16 09/01/16 09/02/16 09/02/16 09/02/16 07:00 15:00 23:00 07:00 15:00 23:00 Intake Total 540 ml 250 ml 240 ml Output Total 100 ml 625 ml 150 ml Balance 440 ml -375 ml 90 ml Intake Oral 240 ml 250 ml 240 ml IV Total 300 ml 0 ml Output Urine Total 100 ml 625 ml 150 ml # Voids 1 # Bowel Movements 1 0 Physical Exam GENERAL: Well-nourished, well-developed patient in no apparent distress. SKIN: Warm and dry. NECK: JVD normal - less than or equal to 5 cm H20. CARDIOVASCULAR: Irregular rate and rhythm without murmurs, gallops, or rubs. RESPIRATORY: Normal breath sounds - equal bilaterally. No accessory muscle use. No wheezes, rales or rubs. PERIPHERY: No cyanosis, or edema. Laboratory Laboratory Tests Test 09/02/16 04:40 White Blood Count 8.5 TH/MM3 Red Blood Count 4.18 MIL/MM3 Hemoglobin 12.6 GM/DL Hematocrit 37.2 % Mean Corpuscular Volume 89.0 FL Mean Corpuscular Hemoglobin 30.1 PG Mean Corpuscular Hemoglobin 33.8 % Concent Red Cell Distribution Width 14.1 % Platelet Count 184 TH/MM3 Mean Platelet Volume 8.7 FL Sodium Level 144 MEQ/L Potassium Level 3.7 MEQ/L Chloride Level 110 MEQ/L Carbon Dioxide Level 22.2 MEQ/L Anion Gap 12 MEQ/L Blood Urea Nitrogen 17 MG/DL Creatinine 0.74 MG/DL Estimat Glomerular Filtration 105 ML/MIN Rate Random Glucose 97 MG/DL Calcium Level 8.2 MG/DL Magnesium Level 1.9 MG/DL Imaging Last 48 hours Impressions Chest X-Ray 09/01/16 0600 Signed Impressions: Service Date/Time: Thursday, September 01, 2016 11:57 - CONCLUSION: Very minimal parenchymal changes on the left, new from the comparison study. This is nonspecific. Considerations would include both an inflammatory process as well as atelectasis. Dane Flores MD FACR Chest X-Ray 08/31/16 1443 Signed Impressions: Service Date/Time: Wednesday, August 31, 2016 15:05 - CONCLUSION: Mild left base and perihilar parenchymal opacities Albino Vann MD Assessment and Plan Assessment and Plan Problems: Recurrent atrial flutter Prior cardiomyopathyresolved Defibrillator Possible pulmonary infiltrate Recommendations: Continue oral digoxin and diltiazem. The digoxin dose may need to be decreased. Subcutaneous Lovenox will return tomorrow and decide on further arrhythmia management. Possible pulmonary infiltrate per primary service. All questions answered. Bruce Morales MD Sep 02, 2016 09:19
[2016-09-02] MEDS: SODIUM CHLORIDE 0.9% FLUSH 5 ML FLUSH FLUSH SCH ×2 (09:34→21:59)
[2016-09-02] MEDS: ENOXAPARIN SODIUM 60 MG/0.6 ML SYRINGE SQ SCH ×2 (09:35→21:58)
[2016-09-02] MEDS: DIGOXIN 0.25 MG TAB PO SCH (09:35)
[2016-09-02] MEDS: DOCUSATE SODIUM 100 MG CAP PO SCH ×2 (09:35→20:00)
[2016-09-02] MEDS: DILTIAZEM HCL 30 MG TAB PO SCH ×3 (13:13→23:15)
[2016-09-02] MEDS ORDERED: POTASSIUM CHLORIDE 25 MEQ EFFERVESCENT TAB PO ONE (13:30)
--- NOTE | 2016-09-02 13:42 | HHI.PR ---
Subjective Remarks The patient was resting comfortably. He had no acute complaints. His friend was at the bedside. Their questions were answered. Discussed with nursing. Objective Vitals Vital Signs Date Time Temp Pulse Resp B/P Pulse Ox O2 Delivery O2 Flow Rate FiO2 09/02/16 08:45 98.7 82 16 115/81 94 09/02/16 08:00 77 09/02/16 07:00 120 09/02/16 05:01 98.1 103 16 90/64 91 09/02/16 05:00 106 09/02/16 04:00 119 09/02/16 03:00 111 09/02/16 02:00 117 09/02/16 01:00 141 09/02/16 00:05 98.1 112 16 109/77 91 09/02/16 00:00 107 09/01/16 23:00 111 09/01/16 22:00 97.4 117 16 130/84 90 09/01/16 22:00 119 09/01/16 21:00 111 09/01/16 20:00 137 09/01/16 19:00 103 09/01/16 18:00 117 09/01/16 17:00 111 09/01/16 16:00 97.7 104 17 101/70 94 09/01/16 16:00 102 09/01/16 15:00 100 09/01/16 14:00 100 I/O 09/01/16 09/01/16 09/01/16 09/02/16 09/02/16 09/02/16 07:00 15:00 23:00 07:00 15:00 23:00 Intake Total 540 ml 250 ml 240 ml Output Total 100 ml 625 ml 150 ml Balance 440 ml -375 ml 90 ml Intake Oral 240 ml 250 ml 240 ml IV Total 300 ml 0 ml Output Urine Total 100 ml 625 ml 150 ml # Voids 1 # Bowel Movements 1 0 Result Diagram: 09/02/16 0440 09/02/16 0440 Imaging Last Impressions Chest X-Ray 09/01/16 0600 Signed Impressions: Service Date/Time: Thursday, September 01, 2016 11:57 - CONCLUSION: Very minimal parenchymal changes on the left, new from the comparison study. This is nonspecific. Considerations would include both an inflammatory process as well as atelectasis. Dane Flores MD FACR Objective Remarks GENERAL: This is a well-nourished, well-developed patient, in no apparent distress. SKIN: No rashes, ecchymoses or lesions. Cool and dry. HEAD: Atraumatic. Normocephalic. No temporal or scalp tenderness. EYES: Pupils equal round and reactive. Extraocular motions intact. No scleral icterus. No injection or drainage. ENT: Nose without bleeding, purulent drainage or septal hematoma. Throat without erythema, tonsillar hypertrophy or exudate. Uvula midline. Airway patent. NECK: Trachea midline. No JVD or lymphadenopathy. Supple, nontender, no meningeal signs. CARDIOVASCULAR: Tachycardic, irregularly irregular rhythm. RESPIRATORY: Clear to auscultation. Breath sounds equal bilaterally. No wheezes , rales, or rhonchi. GASTROINTESTINAL: Abdomen soft, non-tender, nondistended. No hepato-splenomegaly , or palpable masses. No guarding. MUSCULOSKELETAL: Extremities without clubbing, cyanosis, or edema. No joint tenderness, effusion, or edema noted. NEUROLOGICAL: Awake and alert. Cranial nerves II through XII intact. Motor and sensory grossly within normal limits. Five out of 5 muscle strength in all muscle groups. Normal speech. PSYCH: Mood and affect appropriate. Medications and IVs Current Medications Medications (Trade) Dose Ordered Sig/Jojo Route Start Time Stop Time Status Last Admin (Lanoxin) 0.25 mg DAILY PO 09/01/16 09:00 09/02/16 09:35 (NS Flush) 2 ml UNSCH PRN FLUSH 08/31/16 18:15 (NS Flush) 2 ml BID FLUSH 08/31/16 21:00 09/02/16 09:34 (Tylenol) 650 mg Q4H PRN PO 08/31/16 18:15 (Zofran Inj) 4 mg Q6H PRN IVP 08/31/16 18:15 (Colace) 100 mg Q12H PO 08/31/16 20:00 09/02/16 09:35 (Senokot) 17.2 mg Q12H PRN PO 08/31/16 18:15 (Tylenol) 650 mg Q6H PRN PO 08/31/16 18:15 (Roxicodone) 10 mg Q4H PRN PO 08/31/16 18:15 (Roxicodone) 5 mg Q4H PRN PO 08/31/16 18:15 (Narcan Inj) 0.4 mg UNSCH PRN IV 08/31/16 18:15 (Lovenox Inj) 60 mg Q12H SQ 09/01/16 09:00 09/02/16 09:35 (Cardizem) 30 mg Q6HR PO 09/02/16 12:00 09/02/16 13:13 A/P Assessment and Plan Atrial flutter with RVR The patient has a history of atrial fibrillation and is on aspirin, digoxin and Coreg. The patient has been feeling short of breath, lethargic and dizzy for the past week. He received IV diltiazem and his rate has been controlled in the emergency department. Cardiology consultation appreciated. Weaned off of Cardizem gtt. - switch Coreg to diltiazem 30 mg q 6 hours 09/02. - Continue digoxin. He received a dose of IV digoxin per cardiology. - Monitor on telemetry. - Check an echocardiogram. - therapeutic Lovenox per cardiology. Will likely transition to Coumadin if no ablation planned. Chronic systolic CHF The patient is status post AICD. He presents with dyspnea and lethargy. - Continue cardiac regimen. Holding Lasix and lisinopril in the setting of relative hypotension. - Follow up with cardiology. - Consider pacemaker interrogation. CAP CXR with questionable infiltrate. He also had leukocytosis which has since resolved. Afebrile. Pt has dyspnea and lethargy. No cough or sputum production. - d/c doxycycline and monitor. - Urinary Legionella and streptococcal antigens pending. - Sputum culture and Gram stain. - Oxygen and nebs as needed. Weakness The patient endorses weakness and lightheadedness since his AICD was placed in 2011. - Physical therapy. - Treatment as above. PPx: Lovenox. Discharge Planning Awaiting clinical improvement. Anticipate d/c in 1-2 days. Gato Haile DO Sep 02, 2016 13:42
--- NOTE | 2016-09-02 13:43 | HHI.FF ---
Face to Face Verification Diagnosis: (1) Atrial flutter with rapid ventricular response (2) Hypotension (3) Systolic CHF Physical Therapy Order: Evaluate and Treat, Improve ambulation, Strength and gait training Home Health Nursing Order: Medical education Signs/symptoms of disease process CHF education Medication education-adverse effect Nursing assessment with vital signs I have seen patient Reagan Dumont on 09/02/16. My clinical findings support the need for the requested home health care services because: Ltd mobility - disease progression Patient has SOB Deconditioned w/ increased weakness Limited ability to care for self I certify that my clinical findings support that this patient is homebound because: Unsafe to leave home unassisted Poor cardiac reserve Gato Haile DO Sep 02, 2016 13:43
--- NOTE | 2016-09-02 15:42 | EC ---
Study Study Date:09/02/2016 STUDY CONCLUSIONS SUMMARY - Left ventricle: The cavity size was normal. Wall thickness was normal. Systolic function was normal. The estimated ejection fraction was in the range of 55% to 60%. Regional wall motion abnormalities cannot be excluded. - Aortic valve: Mild regurgitation. - Tricuspid valve: Mild regurgitation. - Pulmonary arteries: PA peak pressure: 46mm Hg (S). If LV function is below 40, please consider prescribing an ACEI or ARB or document rationale for non-use. PROCEDURE DATA STUDY STATUS: Elective. Procedure: Transthoracic echocardiography. Image quality was fair. Scanning was performed from the parasternal, apical, and subcostal acoustic windows. Study completion: The patient tolerated the procedure well. Transthoracic echocardiography. M-mode, complete 2D, complete spectral Doppler, and color Doppler. Patient status: Inpatient. CARDIAC ANATOMY LEFT VENTRICLE: The cavity size was normal. Wall thickness was normal. Systolic function was normal. The estimated ejection fraction was in the range of 55% to 60%. Regional wall motion abnormalities cannot be excluded. AORTIC VALVE: Poorly visualized. Normal thickness leaflets. Doppler: Transvalvular velocity was within the normal range. There was no stenosis. Mild regurgitation. AORTA: Aortic root: The aortic root was normal in size. MITRAL VALVE: Structurally normal valve. Doppler: Transvalvular velocity was within the normal range. There was no evidence for stenosis. No regurgitation. Peak gradient: 3mm Hg (D). LEFT ATRIUM: The atrium was normal in size. RIGHT VENTRICLE: The cavity size was normal. Wall thickness was normal. Pacer wire or catheter noted in right ventricle. PULMONIC VALVE: Poorly visualized. Doppler: Transvalvular velocity was within the normal range. There was no evidence for stenosis. No regurgitation. TRICUSPID VALVE: Structurally normal valve. Doppler: Transvalvular velocity was within the normal range. Mild regurgitation. PULMONARY ARTERY: The main pulmonary artery was normal-sized. Systolic pressure was within the normal range. RIGHT ATRIUM: The atrium was normal in size. Pacer wire or catheter noted in right atrium. PERICARDIUM: There was no pericardial effusion. SYSTEMIC VEINS: Inferior vena cava: The vessel was normal in size. BASIC MEASUREMENTS ADULT Normal Left ventricle LV internal dimension, ED, chordal level, *37.9 mm 43-52 PLAX LV posterior wall thickness, ED 6.67 mm IVS/LVPW ratio, ED *1.42 <1.3 Ventricular septum Septal thickness, ED 9.49 mm Left atrium Anterior-posterior dimension 31 mm Right ventricle RV internal dimension, ED, PLAX 27.7 mm 19-38 DOPPLER MEASUREMENTS ADULT Normal Main pulmonary artery Pressure, S *46 mm Hg =30 Mitral valve Peak E-wave velocity 85.4 cm/s Peak A-wave velocity 36.5 cm/s Peak gradient, D 3 mm Hg Peak E/A ratio 2.3 Tricuspid valve Regurgitant peak velocity 302 cm/s Peak RV-RA gradient, S 36 mm Hg Maximal regurgitant velocity 302 cm/s Systemic veins Estimated CVP 10 mm Hg Right ventricle RV pressure, S *46 mm Hg <30 LEGEND: Mean values are shown as u=mean value. Asterisk (*) angel values outside specified normal range. Prepared and signed by Bruce Morales [id number]
[2016-09-03] VITALS (26 sets, daily range): BP systolic 108–136; BP diastolic 80–96; PULSE 86–141; RESP 16–18; TEMP 97.8–98; O2SAT 94–97
[2016-09-03] MEDS: DILTIAZEM HCL 30 MG TAB PO SCH ×3 (06:38→18:10)
--- NOTE | 2016-09-03 08:52 | HHI.PR ---
Subjective Remarks The patient had no acute complaints. He said he talked to the masonry instructor this morning. He said he was told not to eat. Objective Vitals Vital Signs Date Time Temp Pulse Resp B/P Pulse Ox O2 Delivery O2 Flow Rate FiO2 09/03/16 07:47 94 21 09/03/16 06:00 100 09/03/16 05:00 94 09/03/16 04:20 97.9 86 16 108/80 95 09/03/16 04:00 102 09/03/16 03:00 97 09/03/16 02:00 96 09/03/16 01:00 117 09/03/16 00:00 117 09/02/16 23:45 97.7 116 16 117/82 95 09/02/16 23:00 113 09/02/16 22:00 103 09/02/16 21:00 83 09/02/16 20:00 99 09/02/16 19:30 97.7 108 16 126/75 95 09/02/16 19:00 108 09/02/16 18:01 116 09/02/16 17:12 115 09/02/16 16:52 95 21 09/02/16 16:35 97.6 88 16 143/75 95 09/02/16 16:00 94 09/02/16 15:09 79 09/02/16 14:02 93 09/02/16 13:00 91 09/02/16 12:00 84 09/02/16 12:00 98.0 96 16 128/85 94 09/02/16 11:00 103 09/02/16 10:00 109 09/02/16 09:00 84 I/O 09/02/16 09/02/16 09/02/16 09/03/16 09/03/16 09/03/16 07:00 15:00 23:00 07:00 15:00 23:00 Intake Total 240 ml 480 ml 480 ml Output Total 150 ml 200 ml 300 ml Balance 90 ml 280 ml 180 ml Intake Oral 240 ml 480 ml 480 ml IV Total 0 ml Output Urine Total 150 ml 200 ml 300 ml # Voids 1 # Bowel Movements 0 0 Result Diagram: 09/02/16 0440 09/02/16 0440 Imaging Last Impressions Chest X-Ray 09/01/16 0600 Signed Impressions: Service Date/Time: Thursday, September 01, 2016 11:57 - CONCLUSION: Very minimal parenchymal changes on the left, new from the comparison study. This is nonspecific. Considerations would include both an inflammatory process as well as atelectasis. Dane Flores MD FACR Objective Remarks GENERAL: This is a well-nourished, well-developed patient, in no apparent distress. SKIN: No rashes, ecchymoses or lesions. Cool and dry. HEAD: Atraumatic. Normocephalic. No temporal or scalp tenderness. EYES: Pupils equal round and reactive. Extraocular motions intact. No scleral icterus. No injection or drainage. ENT: Nose without bleeding, purulent drainage or septal hematoma. Throat without erythema, tonsillar hypertrophy or exudate. Uvula midline. Airway patent. NECK: Trachea midline. No JVD or lymphadenopathy. Supple, nontender, no meningeal signs. CARDIOVASCULAR: Tachycardic, irregularly irregular rhythm. RESPIRATORY: Clear to auscultation. Breath sounds equal bilaterally. No wheezes , rales, or rhonchi. GASTROINTESTINAL: Abdomen soft, non-tender, nondistended. No hepato-splenomegaly , or palpable masses. No guarding. MUSCULOSKELETAL: Extremities without clubbing, cyanosis, or edema. No joint tenderness, effusion, or edema noted. NEUROLOGICAL: Awake and alert. Cranial nerves II through XII intact. Motor and sensory grossly within normal limits. Five out of 5 muscle strength in all muscle groups. Normal speech. PSYCH: Flattened affect. Medications and IVs Current Medications Medications (Trade) Dose Ordered Sig/Jojo Route Start Time Stop Time Status Last Admin (Lanoxin) 0.25 mg DAILY PO 09/01/16 09:00 09/02/16 09:35 (NS Flush) 2 ml UNSCH PRN FLUSH 08/31/16 18:15 (NS Flush) 2 ml BID FLUSH 08/31/16 21:00 09/02/16 21:59 (Tylenol) 650 mg Q4H PRN PO 08/31/16 18:15 (Zofran Inj) 4 mg Q6H PRN IVP 08/31/16 18:15 (Colace) 100 mg Q12H PO 08/31/16 20:00 09/02/16 09:35 (Senokot) 17.2 mg Q12H PRN PO 08/31/16 18:15 (Tylenol) 650 mg Q6H PRN PO 08/31/16 18:15 (Roxicodone) 10 mg Q4H PRN PO 08/31/16 18:15 (Roxicodone) 5 mg Q4H PRN PO 08/31/16 18:15 (Narcan Inj) 0.4 mg UNSCH PRN IV 08/31/16 18:15 (Lovenox Inj) 60 mg Q12H SQ 09/01/16 09:00 09/02/16 21:58 (Cardizem) 30 mg Q6HR PO 09/02/16 12:00 09/03/16 06:38 A/P Assessment and Plan Atrial flutter with RVR The patient has a history of atrial fibrillation and is on aspirin, digoxin and Coreg. The patient has been feeling short of breath, lethargic and dizzy for the past week. He received IV diltiazem and his rate has been controlled in the emergency department. Cardiology consultation appreciated. Weaned off of Cardizem gtt. Echo with EF 55-60%. - continue diltiazem 30 mg q 6 hours. - Continue digoxin. He received a dose of IV digoxin per cardiology. - Monitor on telemetry. - therapeutic Lovenox per cardiology. Will likely transition to Coumadin upon discharge. - possible ablation 09/03 per cardiology. Chronic systolic CHF The patient is status post AICD. He presents with dyspnea and lethargy. Echo with EF of 55-60%. - Continue cardiac regimen. Holding Lasix and lisinopril in the setting of relative hypotension. - Follow up with cardiology. Dyspnea CXR with questionable infiltrate. He also had leukocytosis which has since resolved. Afebrile. Pt has dyspnea and lethargy. No cough or sputum production. - d/c doxycycline and monitor. - Sputum culture and Gram stain. - Oxygen and nebs as needed. - home oxygen walk test requested. Weakness The patient endorses weakness and lightheadedness since his AICD was placed in 2011. - Physical therapy. - Treatment as above. PPx: Lovenox. Discharge Planning Awaiting clinical improvement. Anticipate d/c in 1-2 days. Gato Haile DO Sep 03, 2016 08:52
[2016-09-03] MEDS: ENOXAPARIN SODIUM 60 MG/0.6 ML SYRINGE SQ SCH ×2 (08:59→20:31)
[2016-09-03] MEDS: DOCUSATE SODIUM 100 MG CAP PO SCH ×2 (08:59→20:31)
[2016-09-03] MEDS: SODIUM CHLORIDE 0.9% FLUSH 5 ML FLUSH FLUSH SCH ×2 (08:59→20:32)
[2016-09-03] MEDS: DIGOXIN 0.25 MG TAB PO SCH (08:59)
--- NOTE | 2016-09-03 12:51 | MB ---
cc: EDILBERTO BETANCUR M.D. DATE OF CONSULTATION 09/03/2015 REASON FOR CONSULTATION Atrial flutter, atrial fibrillation. HISTORY OF PRESENT ILLNESS Mr. Dumont is a 66-year-old gentleman with history of atrial fibrillation, previous ablation in 2011, cardiomyopathy, cardiomyopathy resolved post-ablation, history of high blood pressure on optimal medical management, admitted due to shortness of breath and atrial fibrillation, atrial flutter with fast ventricular response. During hospitalization multiple drugs were initiated. Heart rate can barely be controlled. I was consulted for further evaluation and management. The chart was reviewed. The patient was evaluated. ALLERGIES None. SOCIAL HISTORY The gentleman quit smoking two years ago, quit drinking also two years ago. FAMILY HISTORY Noncontributory to his current medical condition. MEDICATIONS Currently he is on - 1. Cardizem p.o. 2. Digoxin. 3. Lovenox. 4. Acetaminophen. 5. Roxicodone. REVIEW OF SYSTEMS He refers no chest pain, no chest discomfort, palpitations, shortness of breath but no vomiting. No fever. PHYSICAL EXAMINATION General: Alert, fully oriented. Vital Signs: Blood pressure is 123/90, pulse 95, previous pulse was 112, respiratory rate 18. Lungs: Ventilated. Cardiovascular: S1-S2, irregular, tachycardic. Abdomen: Soft. No mass. Extremities: No edema. ELECTROCARDIOGRAM Apparently just with atrial flutter. LABORATORY DATA Hemoglobin 12.6, white blood cell 8.5. Potassium 3.7, creatinine 0.74. INR 1.0. ASSESSMENT AND RECOMMENDATIONS Mr. Dumont has a possible atrial flutter versus left atrial tachyarrhythmia. Electrophysiology study and ablation discussed with him. The risks, the nature and the benefit of the procedure are clearly stated to him. The risks include pneumothorax, cardiac perforation, stroke and even . He understood and agreed to proceed. PLAN The procedure is going to be performed during the hospitalization. Edilberto Betancur MD HS/SSB /12:10 PM /12:45 PM
[2016-09-03] MEDS ORDERED: ASPI1TAB69 PO (16:01)
[2016-09-03] MEDS ORDERED: CARV3.12 PO (16:01)
[2016-09-03] MEDS ORDERED: VENTAER INH (16:01)
[2016-09-03] MEDS ORDERED: LISI2.5T3 PO (16:01)
[2016-09-04] VITALS (23 sets, daily range): BP systolic 101–124; BP diastolic 71–86; PULSE 77–104; RESP 16–20; TEMP 97.8–98.4; O2SAT 94–97
[2016-09-04] MEDS: DILTIAZEM HCL 30 MG TAB PO SCH ×5 (05:29→23:34)
--- NOTE | 2016-09-04 07:42 | HHI.PR ---
Subjective Remarks patient no complains of dizziness or pain or palpitations up and ambulating to the bathroom, generalized weakness looking forward to procedure today no fever no cough Objective Vitals Vital Signs Date Time Temp Pulse Resp B/P Pulse Ox O2 Delivery O2 Flow Rate FiO2 09/04/16 06:26 87 09/04/16 05:10 96 09/04/16 04:00 94 09/04/16 03:00 97.8 102 16 114/81 94 09/04/16 01:00 94 09/04/16 00:00 104 09/03/16 23:00 98.0 119 18 118/84 96 09/03/16 23:00 119 09/03/16 22:00 101 09/03/16 21:13 95 21 09/03/16 21:00 115 09/03/16 20:00 122 09/03/16 19:30 97.9 116 16 133/96 94 09/03/16 19:30 118 09/03/16 18:11 101 09/03/16 17:24 97 09/03/16 16:00 98 09/03/16 15:14 95 09/03/16 15:14 97.8 90 18 136/88 95 09/03/16 14:03 95 09/03/16 13:26 100 09/03/16 12:27 113 09/03/16 11:39 97 09/03/16 11:39 97.8 95 18 123/90 97 09/03/16 10:02 141 09/03/16 09:10 135 09/03/16 08:00 97.9 92 18 117/86 94 09/03/16 08:00 112 09/03/16 07:47 94 21 I/O 09/03/16 09/03/16 09/03/16 09/04/16 09/04/16 09/04/16 07:00 15:00 23:00 07:00 15:00 23:00 Intake Total 480 ml 240 ml 240 ml Output Total 300 ml 400 ml 450 ml Balance 180 ml -160 ml -210 ml Intake Oral 480 ml 240 ml 240 ml Output Urine Total 300 ml 400 ml 450 ml # Voids 2 # Bowel Movements 0 Result Diagram: 09/02/16 0440 09/02/16 0440 Imaging Last Impressions Chest X-Ray 09/01/16 0600 Signed Impressions: Service Date/Time: Thursday, September 01, 2016 11:57 - CONCLUSION: Very minimal parenchymal changes on the left, new from the comparison study. This is nonspecific. Considerations would include both an inflammatory process as well as atelectasis. Dane Flores MD FACR Objective Remarks awake and alert, oriented x 3, blunt affect anicteric lungs clear-no rales or wheezes irregular rhythm abdomen soft, nontender extremities no leg edema, no calf tenderness A/P Assessment and Plan Atrial flutter with variable rate S/P AICD The patient has a history of atrial fibrillation and is on aspirin, digoxin and Coreg. The patient has been feeling short of breath, lethargic and dizzy for the past week. He received IV diltiazem and his rate has been controlled in the emergency department. Cardiology consultation appreciated. Weaned off of Cardizem gtt. Echo with EF 55-60%. - continue diltiazem 30 mg q 6 hours. - Continue digoxin. - Monitor on telemetry. - therapeutic Lovenox per cardiology. Will likely transition to Coumadin upon discharge. - plan for ablation today by Dr. Turcios history of CMP - resolved- EF in 2011 was 20-25% now EF of 55-65% The patient is status post AICD. Echo with EF of 55-60%. - Continue cardiac regimen. Holding Lasix and lisinopril in the setting of relative hypotension. Dyspnea CXR with questionable infiltrate. He also had leukocytosis which has since resolved. Afebrile. Pt has dyspnea and lethargy. No cough or sputum production. - d/c doxycycline and monitor. - Sputum culture and Gram stain. - Oxygen and nebs as needed. - home oxygen walk test requested. Weakness The patient endorses weakness and lightheadedness since his AICD was placed in 2011. - Physical therapy. - Treatment as above. PPx: Lovenox. Braeden Chung MD Sep 04, 2016 07:42
--- NOTE | 2016-09-04 07:45 | HHI.PR ---
Objective Vitals Vital Signs Date Time Temp Pulse Resp B/P Pulse Ox O2 Delivery O2 Flow Rate FiO2 09/04/16 06:26 87 09/04/16 05:10 96 09/04/16 04:00 94 09/04/16 03:00 97.8 102 16 114/81 94 09/04/16 01:00 94 09/04/16 00:00 104 09/03/16 23:00 98.0 119 18 118/84 96 09/03/16 23:00 119 09/03/16 22:00 101 09/03/16 21:13 95 21 09/03/16 21:00 115 09/03/16 20:00 122 09/03/16 19:30 97.9 116 16 133/96 94 09/03/16 19:30 118 09/03/16 18:11 101 09/03/16 17:24 97 09/03/16 16:00 98 09/03/16 15:14 95 09/03/16 15:14 97.8 90 18 136/88 95 09/03/16 14:03 95 09/03/16 13:26 100 09/03/16 12:27 113 09/03/16 11:39 97 09/03/16 11:39 97.8 95 18 123/90 97 09/03/16 10:02 141 09/03/16 09:10 135 09/03/16 08:00 97.9 92 18 117/86 94 09/03/16 08:00 112 09/03/16 07:47 94 21 I/O 09/03/16 09/03/16 09/03/16 09/04/16 09/04/16 09/04/16 07:00 15:00 23:00 07:00 15:00 23:00 Intake Total 480 ml 240 ml 240 ml Output Total 300 ml 400 ml 450 ml Balance 180 ml -160 ml -210 ml Intake Oral 480 ml 240 ml 240 ml Output Urine Total 300 ml 400 ml 450 ml # Voids 2 # Bowel Movements 0 Result Diagram: 09/02/1643909/02/16439 Braeden Chung MD Sep 04, 2016 07:45 irregular rhythm abdomen soft, nontender extremities no edema, no calf tenderness A/P Assessment and Plan Atrial flutter with RVR- rate in 80s The patient has a history of atrial fibrillation and is on aspirin, digoxin and Coreg. The patient has been feeling short of breath, lethargic and dizzy for the past week. He received IV diltiazem and his rate has been controlled in the emergency department. Cardiology consultation appreciated. Weaned off of Cardizem gtt. Echo with EF 55-60%. - continue diltiazem 30 mg q 6 hours. - Continue digoxin. He received a dose of IV digoxin per cardiology. - Monitor on telemetry. - therapeutic Lovenox per cardiology. Will likely transition to Coumadin upon discharge. - for ablation today by Dr. Turcios - on Lovenox Chronic systolic CHF The patient is status post AICD. He presents with dyspnea and lethargy. Echo with EF of 55-60%. - Continue cardiac regimen. Holding Lasix and lisinopril in the setting of relative hypotension. - Follow up with cardiology. Dyspnea CXR with questionable infiltrate. He also had leukocytosis which has since resolved. Afebrile. Pt has dyspnea and lethargy. No cough or sputum production. - d/c doxycycline and monitor. - Sputum culture and Gram stain. - Oxygen and nebs as needed. - home oxygen walk test requested. - good Incentive spirometry efforts Weakness The patient endorses weakness and lightheadedness since his AICD was placed in 2011. - Physical therapy. - Treatment as above. PPx: Lovenox. Braeden Chung MD Sep 04, 2016 07:45
[2016-09-04] MEDS: DOCUSATE SODIUM 100 MG CAP PO SCH ×2 (08:12→21:43)
[2016-09-04] MEDS: SODIUM CHLORIDE 0.9% FLUSH 5 ML FLUSH FLUSH SCH ×2 (08:12→21:43)
[2016-09-04] MEDS: DIGOXIN 0.25 MG TAB PO SCH (08:12)
[2016-09-04] MEDS ORDERED: HEPARIN-NS/PF INJ 500 ML ONE (12:15)
[2016-09-04] MEDS ORDERED: SODIUM CHLORID 0.9% 500 ML INJ 500 ML IV ONE (13:00)
[2016-09-04] MEDS ORDERED: PHENYLEPH/NS 1000 MCG/10 ML SYR OTHER ONE (13:00)
[2016-09-04] MEDS ORDERED: ONDANSETRON HCL 4 MG/2 ML VIAL IV PUSH ONE (13:00)
[2016-09-04] MEDS ORDERED: PROPOFOL 200 MG/20 ML AMP IV ONE (13:00)
[2016-09-04] MEDS ORDERED: ePHEDrine/NS 50 MG/5 ML SYR IV ONE (13:00)
[2016-09-04] MEDS ORDERED: DO NOT ADM ANY ANTICOAGULANT DRUGS XX PRN (14:10)
[2016-09-04] MEDS ORDERED: METOCLOPRAMIDE HCL 10 MG/2 ML VIAL IV PRN (14:30)
[2016-09-04] MEDS ORDERED: ONDANSETRON HCL 4 MG/2 ML VIAL IV PRN (14:30)
[2016-09-04] MEDS ORDERED: oxyCODONE/ACETAMINOPHEN 5 MG/325 MG TAB PO PRN ×2 (14:30)
[2016-09-04] MEDS ORDERED: SODIUM CHLOR 0.9% 250 ML INJ 250 ML IV PRN (14:30)
[2016-09-04] MEDS ORDERED: LORazepam 2 MG/ML VIAL IV PRN (14:30)
[2016-09-04] MEDS ORDERED: LIDOCAINE HCL 1% 50 ML VIAL INFIL PRN (14:30)
[2016-09-04] MEDS ORDERED: ATROPINE SULFATE 1 MG/ML VIAL IV PRN (14:30)
[2016-09-04] MEDS ORDERED: MIDAZOLAM HCL 2 MG/2 ML VIAL ONE (14:33)
[2016-09-04] MEDS ORDERED: BACITRACIN OINT 0.9 GM PKT TOP ONE (15:00)
--- NOTE | 2016-09-04 17:03 | MA ---
cc: EDILBERTO BETANCUR M.D. DATE: 09/04/2016 PROCEDURE Electrophysiology study, coronary sinus cannulation, 3D mapping, intracardiac echo, radiofrequency ablation of atrial flutter, atrial fibrillation, cardioversion. Termination of the procedure because the blood pressure was unstable. HISTORY Mr. Dumont is a 66-year-old gentleman with a history of cardio echo, history of heart failure, cardiomyopathy, had atrial fibrillation ablation that was in 2011. The gentleman is admitted due to atrial flutter and possible atrial tachycardia with rapid ventricular response. Decision for electrophysiology study and ablation was taken. The risks, the nature and the benefit of the procedure are clearly stated to him. The risks include pneumothorax, cardiac perforation, stroke, need for open heart surgery and even . The patient understood and agreed to proceed. PROCEDURE DETAILS As written informed consent was obtained prior to the transesophageal echocardiogram, the patient was kept on the table where he was prepped and draped in the usual sterile fashion. Conscious sedation was initiated and maintained throughout the procedure by anesthesiologist. Once sedation verified, the right and left inguinal areas were anesthetized with 2% Xylocaine. At this point I was thinking about proceeding with flutter ablation. The left femoral artery was cannulated on one occasion and one guidewire was advanced. Over the wire a 4-Swedish Hemaquet was advanced. Then the left femoral vein was cannulated on three occasions and three guidewires were advanced. Over the wire two 6 and a 7-Swedish Hemaquet were advanced. Then the right femoral vein was cannulated on one occasion and one guidewire was advanced. Over the wire an 8-Swedish Hemaquet was advanced. Then under fluoroscopic guidance through the 6 and 7-Swedish Hemaquets, three 5-Swedish Carmencita curved quadripolar electrophysiology catheters were advanced and positioned on the His, coronary sinus and upper right atrium. The patient was in atrial flutter. Cycle length was around 205 milliseconds. Through the 8 Swedish Hemaquet, a Cordis Madison F curve 8 mm mapping radiofrequency ablation catheter was advanced. Using [employer] Endocardial Solution Mapping system a three-dimensional configuration of the right atrium was obtained. At that point the patient went into atrial fibrillation. During the procedure blood pressure was very difficult to control. I did place the catheter at the critical isthmus for flutter ablation. Critical isthmus line was delivered. At this point I was decided to proceed with atrial fibrillation ablation after the flutter ablation. Systolic blood pressure despite multiple medications could not be increased. The mean was in the 60s. The patient received already vasopressin, epinephrine, dopamine. At this point I decided to proceed with intracardiac echo. One of the 7-Swedish Hemaquets in the left femoral vein was exchanged for a 10-Swedish Hemaquet. In through the 10-Swedish Hemaquet, a Cordis Madison AcuNav intracardiac echo catheter was placed at the right atrium. There was no pericardial effusion. Pulmonary vein seen. Atrial septal visualized. There is no posterior or anterior pericardial effusion. Then I did place the catheter at the right ventricular septal area. There was adequate left ventricular wall contractility. At this point despite medications, I decided to proceed with cardioversion to see if I could control better the blood pressure. A 200 sync biphasic joule was delivered that converted the patient into sinus rhythm. The patient was observed. Because the blood pressure was unable to be controlled, I decided to terminate the procedure. All catheters were removed. The patient going to be transferred to recovery room. Blood loss minimal. While the patient was being undraped and ready to transfer to the bed, we did realize apparently the IV line that the medication was administered was not connected. It was off. Most of the medication ended up in the patient's bed. IMPRESSION 1. Electrocardiogram: At baseline the patient was in atrial flutter. Postprocedure the patient is sinus. 2. Basic interval. The basic cycle length was around 580. Post cardioversion it was 92 and 66. AH was 92 and HV was 66. 3. Tachyarrhythmia. Atrial flutter was mapped and ablated. Atrial fibrillation was cardioverted. Pacing lateral to the line of atrial flutter post cardioversion showed early activation in the His compared to the CS that indicated bilateral line of block. CONCLUSION Successful electrophysiology study, mapping, radiofrequency ablation of atrial flutter, atrial fibrillation and cardioversion, successful dual-chamber defibrillator reprogramming, COMMENT AND RECOMMENDATIONS As mentioned before the patient going to be transferred to recovery room. He will be observed. If he is back in atrial fibrillation then fib ablation will be considered. MD ALEXIS Vaughn/DURAN /2:24 PM /4:31 PM
[2016-09-05] VITALS (16 sets, daily range): BP systolic 106–113; BP diastolic 69–78; PULSE 60–85; RESP 17–18; TEMP 98.4–98.6; O2SAT 93–96
[2016-09-05 06:36] LABS: APTT (PATIENT) 24.8 SEC (24.3-30.1); PROTHROMBIN TIME - PATIENT 10.9 SEC (9.8-11.6)
[2016-09-05] MEDS: DILTIAZEM HCL 30 MG TAB PO SCH ×2 (06:37→11:23)
[2016-09-05] MEDS: SODIUM CHLORIDE 0.9% FLUSH 5 ML FLUSH FLUSH SCH (09:32)
[2016-09-05] MEDS: DIGOXIN 0.25 MG TAB PO SCH ×2 (09:32→09:34)
[2016-09-05] MEDS: DOCUSATE SODIUM 100 MG CAP PO SCH (09:32)
--- NOTE | 2016-09-05 11:10 | EKG ---
Date Performed: 09/05/2016 Time Performed: 05:55:00 PTAGE: 66 years EKG: Sinus rhythm Inferior and septal T wave changes are nonspecific Borderline ECG PREVIOUS TRACING : 09/04/2016 14.56 Compared to prior tracing no significant change DOCTOR: David Santiago Interpretating Date/Time 09/05/2016 11:08:45
--- NOTE | 2016-09-05 11:39 | PD.CARD.PN ---
Subjective Subjective Remarks Feels good. Objective Medications Current Medications Medications (Trade) Dose Ordered Sig/Jojo Route Start Time Stop Time Status Last Admin (Lanoxin) 0.25 mg DAILY PO 09/01/16 09:00 09/05/16 09:32 (NS Flush) 2 ml UNSCH PRN FLUSH 08/31/16 18:15 (NS Flush) 2 ml BID FLUSH 08/31/16 21:00 09/05/16 09:32 (Tylenol) 650 mg Q4H PRN PO 08/31/16 18:15 (Colace) 100 mg Q12H PO 08/31/16 20:00 09/05/16 09:32 (Senokot) 17.2 mg Q12H PRN PO 08/31/16 18:15 (Narcan Inj) 0.4 mg UNSCH PRN IV 08/31/16 18:15 (Cardizem) 30 mg Q6HR PO 09/02/16 12:00 09/05/16 11:23 (Percocet 5-325 Mg) 1 tab Q4H PRN PO 09/04/16 14:30 (Percocet 5-325 Mg) 2 tab Q4H PRN PO 09/04/16 14:30 (Ativan Inj) 0.5 mg UNSCH PRN IV 09/04/16 14:30 09/05/16 14:29 Atropine Sulfate 0.5 mg 0.5 mg UNSCH PRN IV 09/04/16 14:30 (NS 250 ml Inj) 250 ml @ 500 mls/hr ONCE PRN IV 09/04/16 14:30 09/05/16 14:29 (Reglan Inj) 10 mg Q4H PRN IV 09/04/16 14:30 (Zofran Inj) 4 mg Q4H PRN IV 09/04/16 14:30 (Xylocaine 1% Inj (50 ml)) 10 ml UNSCH PRN INFIL 09/04/16 14:30 09/05/16 14:29 Miscellaneous Information ALL NURSING DEPARTME... UNSCH PRN XX 09/04/16 14:10 09/05/16 14:09 Vital Signs / I&O Vital Signs Date Time Temp Pulse Resp B/P Pulse Ox O2 Delivery O2 Flow Rate FiO2 09/05/16 11:00 72 09/05/16 10:00 63 1/11/17 09:00 62 09/05/16 08:00 61 09/05/16 07:15 98.6 69 18 110/73 94 09/05/16 07:15 66 09/05/16 06:00 74 09/05/16 05:00 76 09/05/16 04:00 80 09/05/16 03:00 98.4 77 17 106/78 95 09/05/16 03:00 79 09/05/16 02:25 93 Nasal Cannula 09/05/16 02:00 85 09/05/16 01:00 82 09/05/16 00:00 81 09/04/16 23:00 104 09/04/16 23:00 98.2 88 16 101/71 97 09/04/16 22:00 101 09/04/16 21:00 99 09/04/16 20:00 89 09/04/16 19:00 97.9 90 16 116/78 96 09/04/16 19:00 79 09/04/16 18:28 98.4 83 18 119/86 96 09/04/16 18:27 90 09/04/16 17:58 89 09/04/16 17:44 98.4 83 18 122/79 96 09/04/16 16:44 98.4 80 18 113/86 96 09/04/16 16:30 97.8 83 20 119/80 96 09/04/16 16:30 80 09/04/16 16:14 98.4 77 18 122/84 97 09/04/16 15:44 98.4 80 18 124/82 96 09/04/16 15:20 97.6 75 14 125/68 95 Nasal Cannula 2 09/04/16 15:14 98.4 78 18 117/81 97 09/04/16 15:00 76 19 117/80 94 Nasal Cannula 2 09/04/16 14:45 75 16 116/79 95 Nasal Cannula 2 09/04/16 14:30 79 18 114/77 94 Nasal Cannula 2 09/04/16 14:15 79 14 117/81 94 Nasal Cannula 2 09/04/16 14:11 97.7 82 15 120/84 94 Nasal Cannula 2 I/O 09/04/16 09/04/16 09/04/16 09/05/16 09/05/16 09/05/16 07:00 15:00 23:00 07:00 15:00 23:00 Intake Total 240 ml 1000 ml 505 ml 240 ml Output Total 450 ml 10 ml 850 ml 50 ml Balance -210 ml 990 ml -345 ml 190 ml Intake Oral 240 ml 480 ml 240 ml IV Total 25 ml Other 1000 ml Output Urine Total 450 ml 850 ml 50 ml Estimated Blood Loss 10 ml # Bowel Movements 0 0 0 Physical Exam GENERAL: Well-nourished, well-developed patient. SKIN: Warm and dry. Groin sites soft with no hematoma or bleeding. HEAD: Normocephalic. EYES: No scleral icterus. No injection or drainage. NECK: Supple, trachea midline. No JVD or lymphadenopathy. CARDIOVASCULAR: Regular rate and rhythm without murmurs, gallops, or rubs. RESPIRATORY: Breath sounds equal bilaterally. No accessory muscle use. GASTROINTESTINAL: Abdomen soft, non-tender, nondistended. EXTREMITIES: No cyanosis, or edema. NEUROLOGICAL: Awake, alert, and oriented x 3. Non-focal. Laboratory Laboratory Tests Test 09/05/16 05:46 Prothrombin Time 10.9 SEC Prothromb Time International 1.0 RATIO Ratio Activated Partial 24.8 SEC Thromboplast Time Assessment and Plan Problem List: (1) Atrial flutter with rapid ventricular response Assessment and Plan: Stable, NSR s/p ablation. (2) Atrial fibrillation Assessment and Plan: Seen during ablation and cardioverted. Will need either Eliquis or Xarelto, D/W Dr. Chung. Case management to determine which is [facility] formulary. Pt. can be d/c'd once on anticoagulation per my d/w Dr. Turcios. F /U with Dr. Turcios in 2-3 weeks. Assessment and Plan D/W pt., RN, Dr. Chung, Dr. Turcios. Problem Qualifiers (1) Atrial fibrillation: Qualified Code: I48.0 - Paroxysmal atrial fibrillation Milady Galvez Sep 05, 2016 11:39
--- NOTE | 2016-09-05 11:43 | HHI.PR ---
Subjective Remarks no chest pain or shortness of breath Objective Vitals Vital Signs Date Time Temp Pulse Resp B/P Pulse Ox O2 Delivery O2 Flow Rate FiO2 09/05/16 11:00 72 09/05/16 10:00 63 09/05/16 09:00 62 09/05/16 08:00 61 09/05/16 07:15 98.6 69 18 110/73 94 09/05/16 07:15 66 09/05/16 06:00 74 09/05/16 05:00 76 09/05/16 04:00 80 09/05/16 03:00 98.4 77 17 106/78 95 09/05/16 03:00 79 09/05/16 02:25 93 Nasal Cannula 09/05/16 02:00 85 09/05/16 01:00 82 09/05/16 00:00 81 09/04/16 23:00 104 09/04/16 23:00 98.2 88 16 101/71 97 09/04/16 22:00 101 09/04/16 21:00 99 09/04/16 20:00 89 09/04/16 19:00 97.9 90 16 116/78 96 09/04/16 19:00 79 09/04/16 18:28 98.4 83 18 119/86 96 09/04/16 18:27 90 09/04/16 17:58 89 09/04/16 17:44 98.4 83 18 122/79 96 09/04/16 16:44 98.4 80 18 113/86 96 09/04/16 16:30 97.8 83 20 119/80 96 09/04/16 16:30 80 09/04/16 16:14 98.4 77 18 122/84 97 09/04/16 15:44 98.4 80 18 124/82 96 09/04/16 15:20 97.6 75 14 125/68 95 Nasal Cannula 2 09/04/16 15:14 98.4 78 18 117/81 97 09/04/16 15:00 76 19 117/80 94 Nasal Cannula 2 09/04/16 14:45 75 16 116/79 95 Nasal Cannula 2 09/04/16 14:30 79 18 114/77 94 Nasal Cannula 2 09/04/16 14:15 79 14 117/81 94 Nasal Cannula 2 09/04/16 14:11 97.7 82 15 120/84 94 Nasal Cannula 2 I/O 09/04/16 09/04/16 09/04/16 09/05/16 09/05/16 09/05/16 07:00 15:00 23:00 07:00 15:00 23:00 Intake Total 240 ml 1000 ml 505 ml 240 ml Output Total 450 ml 10 ml 850 ml 50 ml Balance -210 ml 990 ml -345 ml 190 ml Intake Oral 240 ml 480 ml 240 ml IV Total 25 ml Other 1000 ml Output Urine Total 450 ml 850 ml 50 ml Estimated Blood Loss 10 ml # Bowel Movements 0 0 0 Result Diagram: 09/02/160 09/02/16 0440 Imaging Last Impressions Chest X-Ray 09/01/16 0600 Signed Impressions: Service Date/Time: Saturday, September 01, 2016 11:57 - CONCLUSION: Very minimal parenchymal changes on the left, new from the comparison study. This is nonspecific. Considerations would include both an inflammatory process as well as atelectasis. Dane Flores MD FACR Objective Remarks awake and alert, oriented x 3, interactive anicteric lungs clear-no rales or wheezes irregular rhythm abdomen soft, nontender extremities no leg edema, no calf tenderness Procedures 09/04- EPS- cardioversion done A/P Assessment and Plan Atrial flutter with variable rate S/P AICD S/P cardioversion- 09/04 - continue diltiazem 30 mg q 6 hours. - Continue digoxin. - will start Xarelto while in house - DC today- will need OAC- CM to find out -what [place] will pay for- Xarelto vs eliquis history of CMP - resolved- EF in 2011 was 20-25% now EF of 55-65% The patient is status post AICD. Echo with EF of 55-60%. - Continue cardiac regimen. Dyspnea- improved CXR with questionable infiltrate. He also had leukocytosis which has since resolved. Afebrile. Pt has dyspnea and lethargy. No cough or sputum production. - d/c doxycycline and monitor. - Sputum culture and Gram stain. - Oxygen and nebs as needed. - home oxygen walk test requested.- not qualified Weakness- up and ambulating The patient endorses weakness and lightheadedness since his AICD was placed in 2011. - Physical therapy. - Treatment as above. d/w CM- we have sample packet will give 2 for 60 days and go ff [facility] with [facility] and to determine ff up OAC DC today Braeden Chung MD Sep 05, 2016 11:43
[2016-09-05] MEDS ORDERED: DILT31TA PO (11:58)
[2016-09-05] MEDS ORDERED: DIGO0.25 PO (11:58)
[2016-09-05] MEDS ORDERED: XARE20TA PO (11:58)
--- NOTE | 2016-09-05 12:01 | HHI.DS ---
Discharge Summary Admission Date Aug 31, 2016 at 17:36 Discharge Date: Sep 05, 2016 Admitting Diagnosis atrial flutter with rvr (1) Atrial flutter with rapid ventricular response ICD Code: I48.92 Procedures 09/04- EPS- cardioversion done Brief History - From Admission The patient is a 66-year-old male with a past medical history of CHF and atrial fibrillation who is presenting to the hospital with fatigue, lightheadedness and shortness of breath. The patient says that ever since he had AICD placed in 2011 he has chronically had fatigue and lightheadedness from time to time. He also notes shortness of breath from time to time. Over the past week he has noticed his symptoms have been progressing. He is short of breath randomly, not just with exertion. He says when he starts taking deep breaths slowly he starts to feel a little bit better. He has denied any chest pain or palpitations. He says this morning his manager of case management stopped by the house and thought he looked badly so she took him to the hospital for further evaluation. The patient does feel weak in general but he does ambulate without a cane or walker. He is able to go up and down stairs but it is a challenge for him. He denies any lower extremity edema. He has not noticed any weight gain. He does not wake up in the middle of the night short of breath. He is able to lay flat on his back without feeling short of breath. He does endorse a poor memory. He says he has been following up with cardiology. CBC/BMP: 09/02/16 0440 09/02/16 0440 Imaging Last Impressions Chest X-Ray 09/01/16 0600 Signed Impressions: Service Date/Time: Thursday, September 01, 2016 11:57 - CONCLUSION: Very minimal parenchymal changes on the left, new from the comparison study. This is nonspecific. Considerations would include both an inflammatory process as well as atelectasis. Dane Flores MD FACR PE at Discharge awake and alert, oriented x 3, interactive anicteric lungs clear-no rales or wheezes irregular rhythm abdomen soft, nontender extremities no leg edema, no calf tenderness Pt update on day of discharge in [place] no pain, stronger discuss with shayan with CM- anuj sample packet of Xarelto- x 2 months- to go to [place] then to determine which OAC they will cover ff up with Dr. Turcios in 2 weeks Hospital Course Atrial flutter with variable rate S/P AICD S/P cardioversion- 09/04 - continue diltiazem 30 mg q 6 hours. - Continue digoxin. - will start Xarelto while in house - DC today- will need OAC- to find out -what [place] will pay for- Xarelto vs eliquis history of CMP - resolved- EF in 2011 was 20-25% now EF of 55-65% The patient is status post AICD. Echo with EF of 55-60%. - Continue cardiac regimen. Dyspnea- improved CXR with questionable infiltrate. He also had leukocytosis which has since resolved. Afebrile. Pt has dyspnea and lethargy. No cough or sputum production. - d/c doxycycline and monitor. - Oxygen and nebs as needed. - home oxygen walk test requested.- not qualified good sats at room air Weakness- up and ambulating The patient endorses weakness and lightheadedness since his AICD was placed in 2011. - Physical therapy. - Treatment as above. d/w CM- we have sample packet for Xarelto will give 2 for 60 days and go ff up with [place] and to determine what OAC [facility] will cover OAC teaching at bedside DC today Pt Condition on Discharge: Stable Discharge Disposition: Discharge Home Discharge Time: <= 30 minutes Discharge Instructions DIET: Follow Instructions for: Heart Healthy Diet Speech Therapy-Diet Recommends: Regular Activities you can perform: Weight Bearing as Travis Activities to Avoid: Contact Sports, Strenuous Activity Follow up Referrals: Cardiology - 2 Weeks with [facility] Follow[facility] - [facility] New Medications: Digoxin (Digoxin) 0.25 Mg Tab 0.25 MG PO DAILY ARRHY Days 30 TAB Diltiazem (Cardizem) 30 Mg Tab 30 MG PO Q6HR ARRHY Days 30 TAB Rivaroxaban (Xarelto) 20 Mg Tab 20 MG PO DAILY ANTICOA Days 30 TAB Continued Medications: Albuterol 18 GM Inh (Ventolin Hfa 18 GM Inh) 90 Mcg/Act Aer 2 PUFF INH BID PRN SHORTNESS OF BREATH #1 Ref 0 INHALER Discontinued Medications: Aspirin (Aspirin) 81 Mg Tabdr 81 MG PO DAILY TAB Carvedilol (Carvedilol) Unknown Strength Tab Unknown Dose PO BID #60 Ref 0 TAB Lisinopril (Lisinopril) Unknown Strength Tab Unknown Dose PO BID #30 Ref 0 TAB Braeden Chung MD Sep 05, 2016 12:01
[2016-09-05] MEDS ORDERED: RIVAROXABAN 20 MG TAB PO SCH (12:15)
--- NOTE | 2016-09-05 22:44 | EKG ---
Date Performed: 09/04/2016 Time Performed: 14:56:12 PTAGE: 66 years EKG: Sinus rhythm NONSPECIFIC T-WAVE ABNORMALITY BORDERLINE ECG PREVIOUS TRACING : 08/31/2016 22.45 Compared to the previous tracing, afib is no longer presen t DOCTOR: David Santiago Interpretating Date/Time 09/05/2016 22:40:56
--- NOTE | 2016-10-13 15:08 | ETE ---
Study Study Date:09/04/2016 STUDY CONCLUSIONS SUMMARY - Left ventricle: The cavity size was normal. Wall thickness was normal. Systolic function was normal. The estimated ejection fraction was in the range of 55% to 60%. Wall motion was normal; there were no regional wall motion abnormalities. - Aortic valve: No evidence of vegetation. - Mitral valve: No evidence of vegetation. Mild regurgitation. - Left atrium: The atrium was dilated. No evidence of thrombus in the atrial cavity or appendage. No evidence of thrombus in the atrial cavity or appendage. - Right atrium: No evidence of thrombus in the atrial cavity or appendage. - Atrial septum: No defect or patent foramen ovale was identified. Echo contrast study showed no [id number] atrial level shunt, at baseline or with provocation. Echo contrast study showed no kqnzp-pt-soba atrial level shunt, at baseline or with provocation. - Tricuspid valve: No evidence of vegetation. Mild regurgitation. - Pulmonic valve: No evidence of vegetation. If LV function is below 40, please consider prescribing an ACEI or ARB or document rationale for non-use. PROCEDURE DATA Consent: The risks, benefits, and alternatives to the procedure were explained to the patient and informed consent was obtained. Procedure: Initial setup. The patient was brought to the laboratory in the fasting state. Intravenous access was obtained. Surface ECG leads and pulse oximetric signals were monitored. Sedation. Conscious sedation was administered by anesthesiology. Transesophageal echocardiography. Topical anesthesia was obtained using viscous lidocaine. A transesophageal probe was inserted by the attending coal carrier. Image quality was good. Study completion: All IVs inserted during the procedure were removed. The patient tolerated the procedure well. There were no complications. Transesophageal echocardiography. 2D, complete spectral Doppler, and color Doppler. CARDIAC ANATOMY LEFT VENTRICLE: The cavity size was normal. Wall thickness was normal. Systolic function was normal. The estimated ejection fraction was in the range of 55% to 60%. Wall motion was normal; there were no regional wall motion abnormalities. AORTIC VALVE: Trileaflet; mildly thickened leaflets. Cusp separation was normal. No evidence of vegetation. Doppler: No significant regurgitation. Aorta: - There was no atheroma. There was no evidence for dissection. Aortic root: The aortic root was not dilated. Ascending aorta: The ascending aorta was normal in size. Aortic arch: The aortic arch was normal in size. Descending aorta: The descending aorta was normal in size. MITRAL VALVE: Structurally normal valve. Leaflet separation was normal. No evidence of vegetation. Doppler: Mild regurgitation. LEFT ATRIUM: The atrium was dilated. No evidence of thrombus in the atrial cavity or appendage. No evidence of thrombus in the atrial cavity or appendage. The appendage was morphologically a left appendage, multilobulated, and of normal size. Emptying velocity was normal. ATRIAL SEPTUM: No defect or patent foramen ovale was identified. Echo contrast study showed no [id number]-[id number] atrial level shunt, at baseline or with provocation. Echo contrast study showed no [id number]-vu-kbdw atrial level shunt, at baseline or with provocation. RIGHT VENTRICLE: The cavity size was normal. Wall thickness was normal. Systolic function was normal. PULMONIC VALVE: Structurally normal valve. No evidence of vegetation. TRICUSPID VALVE: Structurally normal valve. Leaflet separation was normal. No evidence of vegetation. Doppler: Mild regurgitation. PULMONARY ARTERY: The main pulmonary artery was normal-sized. RIGHT ATRIUM: The atrium was normal in size. No evidence of thrombus in the atrial cavity or appendage. The appendage was morphologically a right appendage. PERICARDIUM: There was no pericardial effusion. Prepared and signed by Hugo Turcios [id number]
== END 2016-09-05 15:19 | disposition home or self-care (01) | DRG 274 ==
LOC: NEPE 13:47 → NEDA 17:36 → HCIN 23:29
PROVIDERS: ADMIT Internal Medicine; ATTEND Internal Medicine
PROC: 02583ZZ Destruction of Conduction Mechanism, Percutaneous Approach (ICD-10-PCS; 2016-09-04)
PROC: 4A0234Z Measurement of Cardiac Electrical Activity, Percutaneous Approach (ICD-10-PCS; 2016-09-04)
PROC: 5A2204Z Restoration of Cardiac Rhythm, Single (ICD-10-PCS; 2016-09-04)
PROC: B246ZZ3 Ultrasonography of Right and Left Heart, Intravascular (ICD-10-PCS; 2016-09-04)
PROC: 4A023FZ Measurement of Cardiac Rhythm, Percutaneous Approach (ICD-10-PCS; principal; 2016-09-04 16:00)
DX: I48.92 Unspecified atrial flutter (principal); I50.22 Chronic systolic (congestive) heart failure; I08.3 Combined rheumatic disorders of mitral, aortic and tricuspid valves; I48.0 Paroxysmal atrial fibrillation; R42 Dizziness and giddiness; Z87.891 Personal history of nicotine dependence; Z79.82 Long term (current) use of aspirin; Z82.49 Family history of ischemic heart disease and other diseases of the circulatory system; Z95.810 Presence of automatic (implantable) cardiac defibrillator
CPT/HCPCS: 71010; 71020; 80048; 80053; 83735; 83880; 84443; 84484; 85025; 85027; 85610; 85730; 92960; 93005; 93306; 93312; 93320; 93325; 93613; 93653; 93662; 94150; 94620; 96365; 96366; C1730; C1732; C1759; C2630; J0456; J0696; J1160; J1644; J1650; J2250; J2370; J2405; J3010; J7040; J7050